=== PATIENT | male | born 1935 | race Caucasian/White ===

== ENCOUNTER 2020-08-23 12:29 | Observation (INO) | payer MEDICARE, BC ==
[~2020-08-23] VITALS: Ht 175.3 cm; Wt 82.0 kg
[2020-08-23] MEDS: SODIUM CHLORIDE 0.9% 1,000 ML IV SCH ×2 (13:00→21:36)
[2020-08-23] MEDS ORDERED: TAMS-11 PO (13:07)
[2020-08-23] MEDS ORDERED: SPIR25TA PO (13:07)
[2020-08-23] MEDS ORDERED: CARB1TAB47 PO ×4 (13:11→13:12)
[2020-08-23] MEDS ORDERED: ASPI-963 PO (13:11)
[2020-08-23] MEDS ORDERED: [UNRECOGNIZED DRUG - OTHER] TP (13:11)
[2020-08-23] MEDS ORDERED: MEMA10TA PO (13:13)
[2020-08-23] MEDS ORDERED: VIT1TABL34 PO (13:14)
[2020-08-23] MEDS ORDERED: RIVA1PAT12 TP (13:15)
[2020-08-23] MEDS ORDERED: CHOL10003 PO (13:15)
[2020-08-23] MEDS ORDERED: SERT50TA PO (13:16)
[2020-08-23 13:20] VITALS: BP 127/63
[2020-08-23] MEDS ORDERED: METO25TA91 PO (13:34)
[2020-08-23 13:51] LABS: ANION GAP 7 mmol/L (5-15); CALCIUM 8.5 mg/dL (8.5-10.1); CHLORIDE 110 mmol/L (98-107); CREATININE 1.16 mg/dL (0.7-1.3)
[2020-08-23] MEDS ORDERED: MIDAZOLAM 1 MG/ML, 2ML ONE (13:53)
[2020-08-23] MEDS ORDERED: FENTANYL PF 100 MCG/2ML ONE (13:53)
[2020-08-23] MEDS ORDERED: VANCOMYCIN 500 MG ONE (13:54)
[2020-08-23] MEDS ORDERED: LIDOCAINE 2%, 20ML ONE (13:54)
[2020-08-23] MEDS ORDERED: VANCOMYCIN PMX 1GM/200ML 200 ML ONE (13:54)
[2020-08-23 13:56] LABS: BASOPHILS % (AUTO) 0 % (0-1); EOSINOPHILS % (AUTO) 1 % (1-7); LYMPHOCYTES % (AUTO) 25 % (22-44); MEAN CORPUSCULAR HEMOGLOBIN 32.6 pg (27.5-34.5); MEAN CORPUSCULAR HGB CONC 33.7 g/dL (33.2-36.2); MEAN PLATELET VOLUME 9.1 fL (7.4-10.4); MONOCYTES % (AUTO) 9 % (2-9); NEUTROPHILS % (AUTO) 64 % (42-75); PLATELET COUNT 171 x10^3/uL (130-400); RED BLOOD COUNT 4.02 x10^6/uL (4.38-5.82); RED CELL DISTRIBUTION WIDTH 14.4 % (9.4-14.8)
[2020-08-23 14:03] LABS: MD NO
[2020-08-23] MEDS ORDERED: CAPSAICIN CRM 0.025%, 60GM TP PRN (15:00)
[2020-08-23] MEDS ORDERED: ACETAMINOPHEN 325 MG TABLET PO PRN (15:00)
[2020-08-23] MEDS ORDERED: HOLD MEDICATION MC PRN (15:00)
[2020-08-23] MEDS ORDERED: TEMPLATE NON-FORMULARY MED. (Carbidopa/Levodopa** (Carbidopa-Levo 25-100 Mg Odt**) 1 TAB) PO SCH (16:00)
[2020-08-23 19:28] VITALS: BP 126/88
[2020-08-23] MEDS ORDERED: CARBIDOPA/LEVODOPA 25 MG/100 MG TABLET PO SCH (21:00)
[2020-08-23] MEDS ORDERED: LEVODOPA PO SCH (21:00)
[2020-08-23] MEDS ORDERED: [UNRECOGNIZED DRUG - OTHER] PO SCH (21:00)
[2020-08-23] MEDS ORDERED: CARBIDOPA PO SCH (21:00)
[2020-08-23 21:36] VITALS: BP 110/67
[2020-08-23] MEDS: SPIRONOLACTONE 25 MG TABLET PO SCH (21:42)
[2020-08-23] MEDS: SODIUM CHLORIDE FLUSH 10ML SYR IVF SCH (21:42)
[2020-08-24 01:32] VITALS: BP 109/72
[2020-08-24] MEDS ORDERED: VANCOMYCIN PMX 1GM/200ML 200 ML IVPB ONE (02:00)
[2020-08-24] MEDS: SODIUM CHLORIDE 0.9% 1,000 ML IV SCH ×2 (05:03→13:00)
[2020-08-24] MEDS ORDERED: CARBIDOPA/LEVODOPA 25 MG/100 MG TABLET PO SCH ×3 (07:00→16:00)
[2020-08-24] MEDS ORDERED: CARBIDOPA PO SCH (07:30)
[2020-08-24] MEDS ORDERED: LEVODOPA PO SCH (07:30)
[2020-08-24] MEDS ORDERED: [UNRECOGNIZED DRUG - OTHER] PO SCH (07:30)
[2020-08-24] MEDS: SPIRONOLACTONE 25 MG TABLET PO SCH (07:57)
[2020-08-24 08:30] VITALS: BP 151/68
[2020-08-24] MEDS ORDERED: SERTRALINE 50MG TABLET PO SCH (09:00)
[2020-08-24] MEDS ORDERED: METOPROLOL SUCCINATE 25 MG TAB.ER.24H PO SCH (09:00)
[2020-08-24] MEDS ORDERED: CHOLECALCIFEROL 1,000 UNIT TABLET PO SCH (09:00)
[2020-08-24] MEDS ORDERED: MEMANTINE 10MG TABLET PO SCH (09:00)
[2020-08-24] MEDS: SODIUM CHLORIDE FLUSH 10ML SYR IVF SCH (09:00)
[2020-08-24] MEDS ORDERED: ASPIRIN 81 MG TABLET EC PO SCH (09:00)
[2020-08-24] MEDS ORDERED: TAMSULOSIN 0.4 MG CAP.ER.24H PO SCH (09:00)
[2020-08-24] MEDS ORDERED: MULTIVITAMINS/MINERALS TABLET PO SCH (09:00)
[2020-08-24] MEDS ORDERED: ACET325T26 PO (10:25)
[2020-08-24] MEDS ORDERED: TEMPLATE NON-FORMULARY MED. (Carbidopa/Levodopa** (Carbidopa-Levo 25-100 Mg Odt**) 1 TAB) PO SCH (12:00)
[2020-08-24 13:10] VITALS: BP 146/72
== END 2020-08-24 16:47 | disposition home or self-care (01) ==
LOC: CACL 12:29 → ORIP 14:43 → 5SO 16:40
PROVIDERS: ADMIT Internal Medicine Cardiovascular Disease; ATTEND Internal Medicine Cardiovascular Disease
DX: I49.5 Sick sinus syndrome (principal); I48.91 Unspecified atrial fibrillation; I11.0 Hypertensive heart disease with heart failure; I50.32 Chronic diastolic (congestive) heart failure; I63.9 Cerebral infarction, unspecified; G20 Parkinson's disease; F02.80 Dementia in other diseases classified elsewhere, unspecified severity, without behavioral disturbance, psychotic disturbance, mood disturbance, and anxiety; G47.33 Obstructive sleep apnea (adult) (pediatric); F32.1 Major depressive disorder, single episode, moderate; R60.9 Edema, unspecified; Z88.0 Allergy status to penicillin; Z87.442 Personal history of urinary calculi; Z79.82 Long term (current) use of aspirin; Z79.899 Other long term (current) drug therapy; Z86.73 Personal history of transient ischemic attack (TIA), and cerebral infarction without residual deficits
CPT/HCPCS: 33208; 36415; 71045; 80048; 85025; 96365; 99156; 99157; C1721; C1779; C1892; G0378; J2250; J3010; J3370; J3490

== ENCOUNTER 2020-08-28 09:15 | Inpatient (IN) | payer MEDICARE, BC ==
[~2020-08-28] VITALS: Ht 177.8 cm; Wt 82.9 kg
[~2020-08-28 09:15] MED LIST: ACET325T26 PO; ASPI-963 PO; CARB1TAB47 PO; CHOL10003 PO; MEMA10TA PO; METO25TA91 PO; RIVA1PAT12 TP; SERT50TA PO; SPIR25TA PO; TAMS-11 PO; VIT1TABL34 PO; [UNRECOGNIZED DRUG - OTHER] TP
--- NOTE | 2020-08-28 09:48 | NUR ---
PATIENT BIB [facility] WITH CHIEF C/O GENERALIZED WEAKNESS. PER EMS NOTICED PATIENT HAS BEEN INCREASINGLY GETTING WEAKER SINCE PACEMAKER PLACEMENT LAST Wednesday08/23/2020. SITE OF PACEMAKER PLACEMENT IS HEALING WELL, PATIENT REPORTS SOME MILD TENDERNESS IN THE AREA. PER EMS UPON ARRIVAL PATIENT'S ROOM AIR SATURATION 88%-90%, PATIENT PLACED ON 2 LPM NC. PATIENT HAD SECOND DOSE OF COVID VACCINE YESTERDAY, DENIES ANY SYMPTOMS. NADN, VSS, NO SIGNS OF INFECTION AT PACER SITE, PATIENT'S LEFT ARM IN SLING, SIDE RAILS UP X2, CALL LIGHT WITHIN REACH.
--- NOTE | 2020-08-28 10:02 | NUR ---
ERMD AT BEDSIDE FOR EVALUATION. TIME PIECE REPAIRER AT BEDSIDE FOR EKG.
--- NOTE | 2020-08-28 10:16 | NUR ---
20 GAUGE IV STARTED RIGHT AC, BLOOD COLLECTED AND SENT TO LAB. URINE COLLECTED AND SENT TO LAB. SIDE RAILS UP X2, NADN, VSS, CALL LIGHT WITHIN REACH.
[2020-08-28 10:18] LABS: ALBUMIN 3.3 g/dL (3.4-5.0); CALCIUM 8.3 mg/dL (8.5-10.1); CHLORIDE 109 mmol/L (98-107)
[2020-08-28 10:26] LABS: ANION GAP 6 mmol/L (5-15)
[2020-08-28 10:30] LABS: MICROSCOPIC NOT IND
[2020-08-28 10:41] LABS: BASOPHILS % (AUTO) 1 % (0-1); EOSINOPHILS % (AUTO) 3 % (1-7); LYMPHOCYTES % (AUTO) 23 % (22-44); MEAN CORPUSCULAR HEMOGLOBIN 32.6 pg (27.5-34.5); MEAN CORPUSCULAR HGB CONC 33.6 g/dL (33.2-36.2); MONOCYTES % (AUTO) 11 % (2-9); NEUTROPHILS % (AUTO) 63 % (42-75); PLATELET COUNT 152 x10^3/uL (130-400); RED BLOOD COUNT 4.02 x10^6/uL (4.38-5.82); RED CELL DISTRIBUTION WIDTH 14.2 % (9.4-14.8)
[2020-08-28 10:42] LABS: MD NO
--- NOTE | 2020-08-28 10:59 | NUR ---
BREAK RN: PT VSS, ALL TESTS RESULTED AND CHART UP FOR RECHECK. PT AWARE. CALL LIGHT W/I REACH
--- NOTE | 2020-08-28 11:49 | NUR ---
UPDATED PATRICK, PATIENT'S ON POC. PHONE NUMBER [phone].
[2020-08-28 11:55] LABS: TROPONIN I < 0.015 ng/mL (0.000-0.045)
--- NOTE | 2020-08-28 12:03 | NUR ---
PATIENT RESTING IN GURNEY, NADN, VSS, URINAL EMPTIED AND PLACED WITHIN REACH. CALL LIGHT WITHIN REACH.
--- NOTE | 2020-08-28 13:15 | NUR ---
BREAK RN: BEDPAN REMOVED FROM UNDER PT. PT HAD BM. PT CLEANED, LINENS AND RAFIA REPLACED. PT RESTING ON Jobr W/ CALL LIGHT IN REACH AND SIDE RAILS UPX2. OSMIN LUND.
--- NOTE | 2020-08-28 14:54 | NUR ---
PATIENT RESTING IN GURNEY, NADN, VSS, URINAL EMPTIED AND PLACED WITHIN REACH, PILLOW PROVIDED FOR COMFORT, CALL LIGHT WITHIN REACH, SIDE RAILS UP X2. WAITING FOR TRANSPORT TO FLOOR.
[2020-08-28] MEDS ORDERED: SCOPOLAMINE 1MG PATCH TD SCH (15:00)
[2020-08-28] MEDS ORDERED: ATROPINE OPHTH SOLN 1%, 5ML BC PRN (15:00)
[2020-08-28] MEDS ORDERED: MORPHINE SULFATE 4 MG/ML, 1ML IVPush PRN ×3 (15:00)
[2020-08-28] MEDS ORDERED: LORazepam 2 MG/ML, 1ML IVPush PRN (15:00)
[2020-08-28] MEDS ORDERED: ONDANSETRON 2MG/ML, 2ML IVPush PRN ×2 (15:00→15:30)
[2020-08-28] MEDS ORDERED: SODIUM CHLORIDE 0.9% 1,000 ML IV SCH ×2 (15:00→15:30)
[2020-08-28] MEDS ORDERED: MORPHINE SULFATE 4 MG/ML, 1ML IVPush ONE (15:00)
[2020-08-28] MEDS ORDERED: LORazepam 2 MG/ML, 1ML IVPush ONE (15:00)
--- NOTE | 2020-08-28 15:35 | NUR ---
PATIENT BACK FROM CT SCAN.
--- NOTE | 2020-08-28 15:54 | NUR ---
PATIENT TRANSFERRED TO MEDICAL TELEMETRY VIA GURNEY WITH VISION IMPAIRED TEACHER. ALL PATIENT BELONGINGS GATHERED AND TAKEN WITH PATIENT TO FLOOR.
[2020-08-28] MEDS ORDERED: TEMPLATE NON-FORMULARY MED. (Carbidopa/Levodopa** (Carbidopa-Levo 25-100 Mg Odt**) 1 TAB) PO SCH (16:00)
[2020-08-28 16:22] VITALS: BP 155/66
--- NOTE | 2020-08-28 18:20 | NUR ---
OK TO ADVANCE TO REG IF PATIENT REQUESTS. ON CHOPPED FOR LIMITED LUE ROM Addendum: 08/28/20 at [address] Amended: Links added.
[2020-08-28 19:19] VITALS: BP 133/69
[2020-08-28] MEDS: SPIRONOLACTONE 25 MG TABLET PO SCH (20:13)
[2020-08-28] MEDS ORDERED: LEVODOPA PO SCH (21:00)
[2020-08-28] MEDS ORDERED: [UNRECOGNIZED DRUG - OTHER] PO SCH (21:00)
[2020-08-28] MEDS ORDERED: CARBIDOPA PO SCH (21:00)
[2020-08-29 01:42] VITALS: BP 151/79
[2020-08-29] MEDS: CARBIDOPA/LEVODOPA 25 MG/100 MG TABLET PO SCH ×4 (06:38→21:37)
[2020-08-29 07:11] VITALS: BP 143/70
[2020-08-29] MEDS ORDERED: LEVODOPA PO SCH (07:30)
[2020-08-29] MEDS ORDERED: CARBIDOPA PO SCH (07:30)
[2020-08-29] MEDS ORDERED: [UNRECOGNIZED DRUG - OTHER] PO SCH (07:30)
[2020-08-29] MEDS: MEMANTINE 10MG TABLET PO SCH (08:25)
[2020-08-29] MEDS: ASPIRIN 81 MG TABLET EC PO SCH (08:25)
[2020-08-29] MEDS: SPIRONOLACTONE 25 MG TABLET PO SCH ×2 (08:25→21:38)
[2020-08-29] MEDS: METOPROLOL SUCCINATE 25 MG TAB.ER.24H PO SCH (08:25)
[2020-08-29] MEDS: TAMSULOSIN 0.4 MG CAP.ER.24H PO SCH (08:25)
[2020-08-29] MEDS: RIVASTIGMINE 4.6MG/24HR PATCH TD SCH (08:29)
[2020-08-29] MEDS ORDERED: SERTRALINE 50MG TABLET PO SCH (09:00)
[2020-08-29] MEDS ORDERED: TEMPLATE NON-FORMULARY MED. (Carbidopa/Levodopa** (Carbidopa-Levo 25-100 Mg Odt**) 1 TAB) PO SCH (12:00)
[2020-08-29] MEDS ORDERED: ACETAMINOPHEN 500 MG TABLET PO PRN (12:30)
[2020-08-29 12:54] VITALS: BP 137/74
[2020-08-29 18:51] VITALS: BP 107/62
[2020-08-30 00:39] VITALS: BP 127/62
[2020-08-30 07:02] VITALS: BP 143/70
[2020-08-30] MEDS: MEMANTINE 10MG TABLET PO SCH (08:16)
[2020-08-30] MEDS: RIVASTIGMINE 4.6MG/24HR PATCH TD SCH (08:16)
[2020-08-30] MEDS: SPIRONOLACTONE 25 MG TABLET PO SCH ×2 (08:17→20:33)
[2020-08-30] MEDS: METOPROLOL SUCCINATE 25 MG TAB.ER.24H PO SCH (08:17)
[2020-08-30] MEDS: TAMSULOSIN 0.4 MG CAP.ER.24H PO SCH (08:17)
[2020-08-30] MEDS: ASPIRIN 81 MG TABLET EC PO SCH (08:17)
[2020-08-30] MEDS: CARBIDOPA/LEVODOPA 25 MG/100 MG TABLET PO SCH ×4 (08:21→20:34)
[2020-08-30 12:22] VITALS: BP 134/68
[2020-08-30 19:10] VITALS: BP 110/64
[2020-08-31 00:52] VITALS: BP 109/57
[2020-08-31 06:40] VITALS: BP 135/72
[2020-08-31] MEDS: MEMANTINE 10MG TABLET PO SCH (08:38)
[2020-08-31] MEDS: ASPIRIN 81 MG TABLET EC PO SCH (08:38)
[2020-08-31] MEDS: TAMSULOSIN 0.4 MG CAP.ER.24H PO SCH (08:40)
[2020-08-31] MEDS: METOPROLOL SUCCINATE 25 MG TAB.ER.24H PO SCH (08:40)
[2020-08-31] MEDS: SPIRONOLACTONE 25 MG TABLET PO SCH (08:40)
[2020-08-31] MEDS: CARBIDOPA/LEVODOPA 25 MG/100 MG TABLET PO SCH ×3 (08:41→16:56)
[2020-08-31] MEDS: RIVASTIGMINE 4.6MG/24HR PATCH TD SCH (08:43)
[2020-08-31 13:42] VITALS: BP 107/64
== END 2020-08-31 19:15 | disposition home health service (06) | DRG 556 ==
LOC: ED 11:37 → OBSVTOIN 12:25 → INTOOBSV 12:25 → EDIP 12:25 → 4EST 15:56
PROVIDERS: ADMIT Internal Medicine; ATTEND Family Medicine
DX: M62.81 Muscle weakness (generalized) (principal); F02.81 Dementia in other diseases classified elsewhere, unspecified severity, with behavioral disturbance; I50.32 Chronic diastolic (congestive) heart failure; K50.90 Crohn's disease, unspecified, without complications; G20 Parkinson's disease; D63.8 Anemia in other chronic diseases classified elsewhere; F32.9 Major depressive disorder, single episode, unspecified; G47.33 Obstructive sleep apnea (adult) (pediatric); I11.0 Hypertensive heart disease with heart failure; N40.0 Benign prostatic hyperplasia without lower urinary tract symptoms; I48.0 Paroxysmal atrial fibrillation; I49.5 Sick sinus syndrome; Z20.822 Contact with and (suspected) exposure to COVID-19; Z95.0 Presence of cardiac pacemaker; Z86.73 Personal history of transient ischemic attack (TIA), and cerebral infarction without residual deficits; Z74.01 Bed confinement status; Z79.899 Other long term (current) drug therapy; Z88.0 Allergy status to penicillin; Z88.2 Allergy status to sulfonamides; T43.225A Adverse effect of selective serotonin reuptake inhibitors, initial encounter
CPT/HCPCS: 36415; 70450; 71045; 80048; 81003; 82040; 83880; 84484; 85025; 87635; 93005; 93306; 99285; G0378; J7030

== ENCOUNTER 2020-10-15 12:29 | Outpatient (CLI) | payer MEDICARE, BC | END 2020-10-15 23:59 | disposition home or self-care (01) | LOC: CVU 12:29 | PROVIDERS: ATTEND Internal Medicine Cardiovascular Disease | DX: I83.93 Asymptomatic varicose veins of bilateral lower extremities (principal); R60.9 Edema, unspecified; I50.32 Chronic diastolic (congestive) heart failure | CPT/HCPCS: 93970 ==

== ENCOUNTER 2021-03-13 12:26 | Outpatient (CLI) | payer MEDICARE, BC | END 2021-03-13 23:59 | disposition home or self-care (01) | LOC: RAD 12:26 | PROVIDERS: ATTEND Internal Medicine | DX: N28.89 Other specified disorders of kidney and ureter (principal); N20.0 Calculus of kidney; R10.9 Unspecified abdominal pain | CPT/HCPCS: 76770 ==